=== PATIENT | female | born 1985 | race Caucasian/White ===

== ENCOUNTER 2022-09-08 03:39 | Emergency (ER) | payer OTHER, MEDICAID, SELFPAY ==
--- NOTE | 2022-09-08 03:44 | ED.ABDPAIN ---
HPI - Abdominal Pain General Chief Complaint: Urogenital-Female Stated Complaint: SEVERE ABD PAIN Time Seen by Provider: 09/08/22 03:43 Source: patient and RN notes reviewed Mode of arrival: Wheelchair Limitations: no limitations History of Present Illness HPI narrative: This is a 37 year old female history of H pylori and hypothyroidism. Patient presents with complaint of significant sudden onset of left flank pain radiates a little bit to the front. Patient denies similar symptoms in the past. She states she woke up earlier this evening felt very crampy and then pain suddenly ramped up significantly from left flank towards the left front. Patient states she has had labor before and delivered babies and this is worse. No fevers but she sweaty. She is nauseated she has not been vomiting but feels like she is going to. She denies chest pain or shortness of breath. No syncope. Patient denies any diarrhea or constipation, no black or bloody stools. Denies dysuria, urgency or frequency. No vaginal bleeding or discharge. Last menstrual period was 2 weeks ago. She thinks she does get regular periods. She does not think she is . She has been sexually active recently but states was not sexually active for a long time before that. Patient states no prior surgeries. She is on a PPI and levothyroxine. Denies tobacco, alcohol or illicit. Patient denies any prior history of ovarian cysts, kidney stones etc.. Related Data Allergies Allergy/AdvReac Type Severity Reaction Status Date / Time acetaminophen [From Percocet] Allergy Verified 09/08/22 03:56 oxycodone [From Percocet] Allergy Verified 09/08/22 03:56 Review of Systems Review of Systems ROS Unobtainable: All systems reviewed & are unremarkable except as noted in HPI and below Exam Narrative Exam Narrative: GENERAL: Alert and oriented x three, female in significant discomfort. Patient's little diaphoretic HEENT: Head normocephalic, atraumatic, EOMI, pupils reactive, face symmetric, moist mucous membranes NECK: Supple, full range of motion CARDIOVASCULAR: Regular rate and rhythm without murmurs, rubs or gallops. RESPIRATORY: Breath sounds equal bilaterally, no wheezes rales or rhonchi. ABDOMEN: Soft, nontender. Normoactive bowel sounds all 4 quadrants. No guarding or rebound, rigidity, no mass, no bruit or pulsatile mass. : No CVA tenderness EXTREMITIES: Normal range of motion, no clubbing or edema. Neurovascularly intact. 2+ pulses bilateral lower extremities. NEUROLOGICAL: Cranial nerves II through XII grossly intact. Moving all extremities SKIN: Warm, dry, no petechiae, no rashes or lesions. Initial Vital Signs Initial Vital Signs: Vital Signs Pulse Rate 73 09/08/22 04:13 Blood Pressure 145/90 H 09/08/22 04:13 Pulse Oximetry 99 09/08/22 04:13 Oxygen Delivery Method Room Air 09/08/22 04:13 Course Orders Ordered: ED Orders 09/08/22 03:48 CT kidney ureter bladder (KUB) Stat 09/08/22 03:49 CBC Auto Diff [Complete Blood Count AUTO DIFF] Stat CMP [Comprehensive Metabolic Panel] Stat Lipase Stat Test Serum,Qual Stat 09/08/22 05:52 UA Complete [Urinalysis and Microscopic] Stat Discontinued Medications Hydromorphone HCl (Hydromorphone 1 Mg Inj) 1 mg IV NOW ONE Stop: 09/08/22 03:59 Last Admin: 09/08/22 04:03 Dose: 1 mg Documented By: SB Hydromorphone HCl (Hydromorphone 1 Mg Inj) 1 mg IM NOW ONE Stop: 09/08/22 04:07 Last Admin: 09/08/22 04:27 Dose: Not Given Documented By: Hydromorphone HCl (Hydromorphone 1 Mg Inj) 1 mg IV NOW ONE Stop: 09/08/22 04:13 Last Admin: 09/08/22 04:15 Dose: 1 mg Documented By: SB Sodium Chloride (Normal Saline 0.9%) 1,000 mls @ 1,000 mls/hr IV BOLUS ONE Stop: 09/08/22 04:48 Last Infusion: 09/08/22 05:05 Dose: 0 mls/hr Documented By: Admin: 09/08/22 03:52 Dose: 1,000 mls/hr Documented By: SB Ketorolac Tromethamine (Ketorolac 30 Mg/Ml Vial) 15 mg IV NOW ONE Stop: 09/08/22 03:49 Last Admin: 09/08/22 03:51 Dose: 15 mg Documented By: SB Lorazepam (Lorazepam 2 Mg/Ml Inj) 1 mg IV NOW ONE Stop: 09/08/22 04:22 Last Admin: 09/08/22 04:24 Dose: 1 mg Documented By: SB Vital Signs Vital signs: Vital Signs - 8 hr 09/08/22 04:13 09/08/22 04:13 09/08/22 04:30 Pulse Rate 73 75 Respiratory Rate Blood Pressure 145/90 H Pulse Oximetry 99 99 Oxygen Delivery Method Room Air 09/08/22 04:31 09/08/22 04:31 09/08/22 05:01 Pulse Rate 79 68 Respiratory Rate Blood Pressure 141/72 H Pulse Oximetry 100 97 Oxygen Delivery Method 09/08/22 05:30 09/08/22 06:16 09/08/22 06:16 Pulse Rate 62 65 Respiratory Rate 16 Blood Pressure 113/78 Pulse Oximetry 99 97 Oxygen Delivery Method Room Air MDM - Abdominal Pain Lab Data 09/08/22 03:49 09/08/22 03:49 Labs: Lab Results 09/08/22 09/08/22 09/08/22 Range/Units 03:49 03:49 03:49 WBC 8.5 (4.5-11.0) X10^3/uL RBC 4.83 (4.0-5.2) X10^6/uL Hgb 13.6 (12.0-16.0) g/dL Hct 40.3 (36-46) % MCV 83.4 (80-100) fL MCH 28.2 (26-34) PG MCHC 33.8 (30-36) % RDW 13.8 (11.6-14.8) % Plt Count 242 (150-400) X10^3/uL Neut % (Auto) 31.4 L (50-75) % Lymph % (Auto) 57.3 H (25-40) % [place] % (Auto) 8.1 (3-14) % Eos % (Auto) 2.2 (2-4) % Baso % (Auto) 1.0 (0-2) % Neut # (Auto) 2700 (4319-0350) /uL Lymph # (Auto) 4900 H (5761-4538) /uL [place] # (Auto) 700 (0-900) /uL Eos # (Auto) 200 (0-450) /uL Baso # (Auto) 100 (0-100) /uL Sodium 136 L (137-145) mmol/L Potassium 4.4 (3.4-5.1) mmol/L Chloride 106 (98-107) mmol/L Carbon Dioxide 24 (22-32) mmol/L BUN 12 (7-17) mg/dL Creatinine 0.83 (0.52-1.04) mg/dL Estimated GFR > 60 (>60) mL/min BUN/Creatinine Ratio 14.5 (6-22) Glucose 108 H (70-100) mg/dL Calcium 8.9 (8.4-10.2) mg/dL Total Bilirubin 0.5 (0.2-1.3) mg/dL AST 24 (14-36) IU/L ALT 22 (<35) IU/L Alkaline Phosphatase 32 L (38-126) U/L Total Protein 7.2 (6.3-8.2) g/dL Albumin 4.1 (3.5-5.0) g/dL Globulin 3.1 (1.7-4.1) g/dL Albumin/Globulin Ratio 1.3 (1.0-2.8) Lipase 219 (23-300) U/L Serum , Qual Negative (Negative) Urine Color Urine Appearance Urine pH (4.5-8.0) Ur Specific [place] (1.000-1.035) Urine Protein (Negative) Urine Glucose (UA) (Negative) g/dL Urine Ketones (NEGATIVE) Urine Occult Blood (Negative) Urine Nitrate (Negative) Urine Bilirubin (NEGATIVE) Urine Urobilinogen (0.2) E.U./dL Ur Leukocyte Esterase (NEGATIVE) Urine RBC (0-5/HPF) Urine WBC (0-5/HPF) Ur Squamous Epith Cells (0-5/HPF) Urine Bacteria (None) Ur Culture Indicated? 09/08/22 Range/Units 05:52 WBC (4.5-11.0) X10^3/uL RBC (4.0-5.2) X10^6/uL Hgb (12.0-16.0) g/dL Hct (36-46) % MCV (80-100) fL MCH (26-34) PG MCHC (30-36) % RDW (11.6-14.8) % Plt Count (150-400) X10^3/uL Neut % (Auto) (50-75) % Lymph % (Auto) (25-40) % [place] % (Auto) (3-14) % Eos % (Auto) (2-4) % Baso % (Auto) (0-2) % Neut # (Auto) (8552-0082) /uL Lymph # (Auto) (0132-2643) /uL [place] # (Auto) (0-900) /uL Eos # (Auto) (0-450) /uL Baso # (Auto) (0-100) /uL Sodium (137-145) mmol/L Potassium (3.4-5.1) mmol/L Chloride (98-107) mmol/L Carbon Dioxide (22-32) mmol/L BUN (7-17) mg/dL Creatinine (0.52-1.04) mg/dL Estimated GFR (>60) mL/min BUN/Creatinine Ratio (6-22) Glucose (70-100) mg/dL Calcium (8.4-10.2) mg/dL Total Bilirubin (0.2-1.3) mg/dL AST (14-36) IU/L ALT (<35) IU/L Alkaline Phosphatase (38-126) U/L Total Protein (6.3-8.2) g/dL Albumin (3.5-5.0) g/dL Globulin (1.7-4.1) g/dL Albumin/Globulin Ratio (1.0-2.8) Lipase (23-300) U/L Serum , Qual (Negative) Urine Color Yellow Urine Appearance Clear Urine pH 7.0 (4.5-8.0) Ur Specific [place] 1.020 (1.000-1.035) Urine Protein Negative (Negative) Urine Glucose (UA) Negative (Negative) g/dL Urine Ketones 1+ H (NEGATIVE) Urine Occult Blood 2+ H (Negative) Urine Nitrate Negative (Negative) Urine Bilirubin Negative (NEGATIVE) Urine Urobilinogen 0.2 (0.2) E.U./dL Ur Leukocyte Esterase Negative (NEGATIVE) Urine RBC 5-10/hpf H (0-5/HPF) Urine WBC None seen (0-5/HPF) Ur Squamous Epith Cells 0-1 /hpf (0-5/HPF) Urine Bacteria None seen (None) Ur Culture Indicated? Cult not indicated Point of care testing: Urine Dip Bedside Urine Glucose Negative Bedside Urine Bilirubin - Negative Bedside Urine Ketone +/- 5 Urine Specific [place] 1.02 Bedside Urine Occult Blood +++ Bedside Urine pH 6.5 Bedside Urine Protein - Negative Bedside Urine Urobilinogen - Negative Bedside Urine Nitrite - Negative Bedside Urine Leukocytes - Negative Esterase Imaging Data CT scan - abdomen/pelvis: Radiologist's Impression: Lung bases are clear. No pericardial or pleural effusion. Liver, gallbladder, pancreas, spleen and adrenal glands are normal. Nonobstructing bilateral intrarenal calculi measuring 2 mm. Moderate left hydroureteronephrosis with a 2 mm left UVJ calculus. No mesenteric or retroperitoneal lymphadenopathy. No abdominal ascites. Umbilical hernia containing fat. No free fluid within pelvis or pelvic adenopathy. Calcified pelvic phleboliths. Uterus and adnexa are normal. Bladder is unremarkable. The colon and small bowel are normal. Appendix is not seen. No suspicious lytic or sclerotic osseous lesions identified. MDM Narrative Medical decision making narrative: This is a 37-year-old female who comes with complaint of sudden onset left flank pain radiating a little bit towards the front. Patient presents similar to kidney stone. Labs are overall reassuring, serum is negative, CT imaging shows 2mm left UVJ calculus with moderate hydro. Additional nonobstructing bilateral intrarenal calculi. Umbilical hernia containing fat. Calcified pelvic phleboliths. urine sample Patient received several doses of pain medications, fluids and antiemetics. Patients pain significantly improved. Patient able to tolerate fluids without issue. Patient passed stone in the department and was given stone in specimen cup. Discharge Plan Departure Patient Disposition: Home Clinical Impression: Kidney stone on left side Instructions: DI for Kidney Stones Activity Restrictions/Additional Instructions: Follow up for recheck if your symptoms persist. Referall for urology was included. You can take ibuprofen up to 800 mg every 8 hours as needed and/or tylenol up to 1000mg every 6 hours as needed. You passed your kidney stone today so you should not have any persistent symptoms. Please return for fevers new or worsening abdominal back or flank pain, persistent vomiting, black or bloody stools, difficulty or inability to urinate or other new or concerning changes. Referrals: Shasha Hamlin ARNP [Primary Care Provider] - Yonis Leach MD [Non-Staff] - Stand Alone Forms: Patient Portal/API
--- NOTE | 2022-09-08 03:48 | DI.CT.S_ITS ---
PROCEDURE: CT KIDNEY URETER BLADDER (KUB) INDICATIONS: L flank pain, sudden onset TECHNIQUE: Axial sections were acquired from the lung bases to the pubic symphysis. Coronal and sagittal reformats were performed. For radiation dose reduction, the following was used: automated exposure control, adjustment of mA and/or kV according to patient size. COMPARISON: [facility], CT, CT ABDOMEN PELVIS WITH CONTRAST, 09/10/2020, 10:42. FINDINGS: Image quality: Excellent. Lung bases: Unremarkable. Heart: No significant findings. URINARY: Right Kidney: At least 2 tiny 1 mm vague stones, nonobstructive. No hydronephrosis Right Ureter: No hydroureter. Left Kidney: [id number] hydronephrosis. paint brush calyceal calcifications consistent with renal tubular acidosis. 1 mm nonobstructing middle pole stone. Left Ureter: A 2 mm stone obstructs the left UVJ resulting in [id number] hydronephrosis. Bladder: Normal wall thickness. No stones. ABDOMEN: Liver: Unremarkable. Gallbladder: Contracted, unremarkable Biliary ducts: Unremarkable. Pancreas: Unremarkable. Spleen: Unremarkable. Adrenal Glands: Unremarkable. Stomach and Bowel: Stomach, small bowel loops, and colon are unremarkable. Peritoneum: No abnormal intraperitoneal fluid. No free air. Ventral Wall: Small fat containing umbilical hernia. Abdominal Nodes: No enlarged retroperitoneal or mesenteric lymph nodes. Vessels: Aorta and inferior vena cava are normal in size. PELVIS: Pelvic Organs: Unremarkable. Pelvic Nodes: Unremarkable. Miscellaneous: No inguinal hernias are seen. Bones: Unremarkable. IMPRESSION: 1. A 2 mm stone obstructs the left UVJ resulting in mild to moderate left hydronephrosis. 2. Findings are consistent with probable renal tubular acidosis. Findings include tiny bilateral nonobstructing stones. Comment: Final report is concordant with preliminary interpretation provided by [facility]. Dictated by: Shawn Skinner M.D. on 09/08/2022 at 8:57 Approved by: Shawn Skinner M.D. on 09/08/2022 at 9:03
[2022-09-08] MEDS: KETOROLAC 30 MG/ML VIAL 15 MG IV (03:51)
[2022-09-08] MEDS: ONDANSETRON 4 MG/2 ML INJ (03:51)
[2022-09-08] MEDS: SODIUM CHLORIDE 0.9% 1,000 ML 1000 ML IV (03:52)
[2022-09-08 04:02] LABS: Add Manual Diff / Slide Review NO; Basophils Absolute Auto 100 /uL (0-100); Eosinophils Absolute Auto 200 /uL (0-450); Eosinophils Percent Auto 2.2 % (2-4); Hematocrit 40.3 % (36-46); Hemoglobin 13.6 g/dL (12.0-16.0); Lymphocytes Absolute Auto 4900 /uL (1100-4500); Lymphocytes Percent Auto 57.3 % (25-40); Mean Corpuscular HGB Conc 33.8 % (30-36); Mean Corpuscular Hemoglobin 28.2 PG (26-34); Mean Corpuscular Volume 83.4 fL (80-100); Monocytes Absolute Auto 700 /uL (0-900); Monocytes Percent Auto 8.1 % (3-14); Neutrophils Absolute Auto 2700 /uL (1500-7000); Neutrophils Percent Auto 31.4 % (50-75); Platelet Count 242 X10^3/uL (150-400); Red Blood Cell Count 4.83 X10^6/uL (4.0-5.2); Red Cell Distribution Width 13.8 % (11.6-14.8); White Blood Cell Count 8.5 X10^3/uL (4.5-11.0)
[2022-09-08] MEDS: HYDROMORPHONE 1 MG INJ IV ×2 (04:03→04:15)
[2022-09-08 04:12] LABS: Alanine Aminotransferase 22 IU/L (<35); Albumin 4.1 g/dL (3.5-5.0); Albumin Globulin Ratio 1.3 (1.0-2.8); Alkaline Phosphatase 32 U/L (38-126); Aspartate Aminotransferase 24 IU/L (14-36); BUN Creatinine Ratio 14.5 (6-22); Bilirubin Total 0.5 mg/dL (0.2-1.3); Blood Urea Nitrogen 12 mg/dL (7-17); Calcium 8.9 mg/dL (8.4-10.2); Carbon Dioxide 24 mmol/L (22-32); Chloride 106 mmol/L (98-107); Estimated Glomerular Filt Rate > 60 mL/min (>60); Globulin 3.1 g/dL (1.7-4.1); Glucose 108 mg/dL (70-100); HEMOLYSIS 18 (0-50); Lipase 219 U/L (23-300); Potassium 4.4 mmol/L (3.4-5.1); Sodium 136 mmol/L (137-145); Total Protein 7.2 g/dL (6.3-8.2)
[2022-09-08 04:13] VITALS: BP 145/90; PULSE 73; O2SAT 99
[2022-09-08] MEDS: LORazepam 2 MG/ML INJ 1 MG IV (04:24)
[2022-09-08 04:27] LABS: Pregnancy Test Serum,Qual Negative (Negative)
[2022-09-08 04:30] VITALS: PULSE 75; O2SAT 99
[2022-09-08 04:31] VITALS: BP 141/72; PULSE 79; O2SAT 100
[2022-09-08 05:01] VITALS: PULSE 68; O2SAT 97
--- NOTE | 2022-09-08 05:15 | PC.NURSE ---
Patient assisted to bathroom to attempt to urinate and collect urine sample. Patient taken to bathroom via wheelchair with communications tech. Unable to urinate once in bathroom. Assisted back to room and positioned on gurney. Pain has improved, patient tolerating laying down and is less restless.
[2022-09-08 05:30] VITALS: PULSE 62; O2SAT 99
--- NOTE | 2022-09-08 05:55 | PC.NURSE ---
Pt up to the bathroom. Steady on her feet. Urine strained with noted kidney stone. Urine collected for POC testing. Kidney stone placed in sterile container and given to patient.
[2022-09-08 06:00] LABS: Appearance Urine UA CLEAR; Bilirubin Urine UA NEGATIVE (NEGATIVE); Color Urine UA YELLOW; Glucose Urine UA NEGATIVE (Negative); Ketones Urine UA 1+ (NEGATIVE); Leukocyte Esterase Urine UA NEGATIVE (NEGATIVE); Nitrite Urine UA NEGATIVE (Negative); Occult Blood Urine UA 2+ (Negative); Protein Urine UA NEGATIVE (Negative); Urobilinogen Urine UA 0.2 E.U./dL (0.2)
[2022-09-08 06:14] LABS: Bacteria Urine None Seen; Culture Indicated Urine Cult Not Indicated; RBC Urine 5-10/HPF (0-5/HPF); Squamous Epithelial Cell Urine 0-1 /HPF (0-5/HPF); WBC Urine None Seen (0-5/HPF)
[2022-09-08 06:16] VITALS: BP 113/78; PULSE 65; RESP 16; O2SAT 97
== END 2022-09-08 06:23 | disposition home or self-care (01) ==
PROVIDERS: Emergency Provider Emergency Medicine; PCP Nurse Practitioner Family
DX: N20.0 Calculus of kidney (principal)
CPT/HCPCS: 36415; 74176; 80053; 81001; 81003; 83690; 84703; 85025; 96361; 96374; 96375; 96376; 99284; J1170; J1885; J2060; J2405